=== PATIENT | female | born 1970 | race African-American/Black ===

== ENCOUNTER 2019-10-15 03:55 | Emergency (ER) | payer BC ==
[2019-10-15] MEDS ORDERED: Ondansetron 4 MG/2 ML SDV IVPUSH ONE (04:21)
[2019-10-15] MEDS ORDERED: Lactated Ringers 1,000 ML IV ONE (04:21)
[2019-10-15] MEDS ORDERED: Dicyclomine 10 MG Cap PO STA (04:22)
[2019-10-15] MEDS ORDERED: Alum Hydrox/Mag Hydrox/Simeth 30 ML, Lidocaine 2% 15 ML PO STA ×2 (04:27)
[2019-10-15] MEDS ORDERED: FLU Vacc QS2019-20(6MOS+)/PF 60 MCG/0.5 ML SYRINGE IM ONE (04:30)
--- NOTE | 2019-10-15 04:31 | EDM.PDOC ---
ED HPI GENERAL MEDICAL PROBLEM - General Chief Complaint: Abdominal Pain Stated Complaint: DIARRHEA COUGH SOB Time Seen by Provider: 10/15/19 04:02 Source of Information: Reports: Patient, Family () History Limitations: Reports: No Limitations - History of Present Illness INITIAL COMMENTS - FREE TEXT/NARRATIVE: Mrs. 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 She felt faint after cleaning it up, then developed epigastric abdominal cramps, one episode of emesis, and watery diarrhea. She states that she can't sleep and she can't eat. No recent fever or urinary symptoms. She states that she has been taking Pepto-Bismol, without any relief, but that her symptoms are improved if she takes a hot bath, therefore she has been taking 3 to 4 per day. No prior similar symptoms. The patient also reports hot flashes for more than 3 years. Her LMP was in August 2015. She has seen a Chemical Test Engineer regarding her menopause. Here in the ED, the patient's BP is found to be elevated at 155/84, but she is otherwise hemodynamically stable, afebrile, saturating 100% on room air. She appears to be quite anxious. The patient does not have a PCP. She did not receive an influenza vaccine this season, but agreed to receive one here today. Epigastric Pain Score (Numeric/FACES): 9 - Related Data Allergies Allergy/AdvReac Type Severity Reaction Status Date / Time amoxicillin [From Augmentin] Allergy Hives Verified 10/15/19 04:04 clavulanic acid Allergy Hives Verified 10/15/19 04:04 [From Augmentin] Home Meds: Home Meds . [No Known Home Meds] 08/15/18 [History] Past Medical History : 7 Para: 8 - Past Surgical History HEENT Surgical History: Reports: Cataract Surgery (left only) Female Surgical History: Reports: Section (x 3) Neurological Surgical History: Reports: Lumbar Spine (unclear - likely microdiscectomy, in 2015) Social & Family History - Family History Family Medical History: Unobtainable - Tobacco Use Smoking Status *Q: Current Every Day Smoker Years of Tobacco use: 35 Packs/Tins Daily: 0.5 Packs/Tins Daily Comment: Down from 2 ppd - Caffeine Use Caffeine Use: Reports: None - Alcohol Use Alcohol Use History: No - Recreational Drug Use Recreational Drug Use: Yes Drug Use in Last 12 Months: Yes Recreational Drug Type: Reports: Marijuana/Hashish (smokes daily) - Living Situation & Occupation Living situation: Reports: , with Spouse, with Family (4 kids) 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 ED EXAM, GI/ABD - Physical Exam Exam: See Below Exam Limited By: No Limitations General Appearance: Alert, WD/WN, Anxious Eyes: Bilateral: Normal Appearance, EOMI Ears: Normal External Exam, Hearing Grossly Normal Nose: Normal Inspection Throat/Mouth: Normal Inspection, Normal Lips, Normal Voice, No Airway Compromise Head: Atraumatic, Normocephalic Neck: Normal Inspection, Full Range of Motion Respiratory/Chest: No Respiratory Distress, Lungs Clear, Normal Breath Sounds, No Accessory Muscle Use Cardiovascular: Normal Peripheral Pulses, Regular Rate, Rhythm, No Edema, No Gallop, No JVD, No Murmur, No Rub GI/Abdominal Exam: Normal Bowel Sounds, Soft, Non-Tender (including the epigastrium), No Organomegaly, No Distention, No Abnormal Bruit, No Mass (Female) Exam: Deferred Rectal (Female) Exam: Deferred Back Exam: Normal Inspection, Full Range of Motion, NT Extremities: Normal Inspection, Normal Range of Motion, No Pedal Edema, Normal Capillary Refill Neurological: Alert, Oriented, Normal Cognition, No Motor/Sensory Deficits Psychiatric: Anxious Skin Exam: Warm, Dry, Intact, Normal Color, No Rash Course - Vital Signs Last Recorded V/S: Last Vital Signs Temp 36.2 C 10/15/19 04:01 Pulse 68 10/15/19 04:01 Resp 19 10/15/19 04:01 BP 155/84 H 10/15/19 04:01 Pulse Ox 100 10/15/19 04:01 - Orders/Labs/Meds Orders: Active Orders 24 hr Category Date Time Status Influenza Vaccine Charge [RC] .DISCHARGE Care 10/15/19 04:23 Active Labs: Laboratory Tests 10/15/19 10/15/19 Range/Units 04:27 04:27 WBC 8.33 (3.98-10.04) K/mm3 RBC 4.94 (3.98-5.22) M/mm3 Hgb 14.6 (11.2-15.7) gm/dl Hct 44.2 (34.1-44.9) % MCV 89.5 (79.4-94.8) fl MCH 29.6 (25.6-32.2) pg MCHC 33.0 (32.2-35.5) g/dl RDW Std Deviation 46.7 H (36.4-46.3) fL Plt Count 312 (182-369) K/mm3 MPV 9.6 (9.4-12.3) fl Neutrophils % (Manual) 62 H (40-60) % Band Neutrophils % 0 (0-10) % Lymphocytes % (Manual) 32 (20-40) % Atypical Lymphs % 0 % Monocytes % (Manual) 5 (2-10) % Eosinophils % (Manual) 1 (0.7-5.8) % Basophils % (Manual) 0 L (0.1-1.2) Platelet Estimate Adequate RBC Morph Comment Normal Sodium 141 (136-145) mEq/L Potassium 3.7 (3.5-5.1) mEq/L Chloride 109 H (98-107) mEq/L Carbon Dioxide 25 (21-32) mEq/L Anion Gap 10.7 (5-15) BUN 14 (7-18) mg/dL Creatinine 0.7 (0.55-1.02) mg/dL Est Cr Clr Drug Dosing 82.19 mL/min Estimated GFR (MDRD) > 60 (>60) mL/min BUN/Creatinine Ratio 20.0 H (14-18) Glucose 95 (74-106) mg/dL Calcium 8.6 (8.5-10.1) mg/dL Magnesium 1.8 (1.8-2.4) mg/dl Total Bilirubin 0.5 (0.2-1.0) mg/dL AST 11 L (15-37) U/L ALT 15 (14-59) U/L Alkaline Phosphatase 96 (46-116) U/L Total Protein 7.0 (6.4-8.2) g/dl Albumin 3.5 (3.4-5.0) g/dl Globulin 3.5 gm/dL Albumin/Globulin Ratio 1.0 (1-2) Lipase 78 (73-393) U/L Meds: Medications Discontinued Medications Generic Name Dose Route Start Last Admin Trade Name Johnnie PRN Reason Stop Dose Admin Al Hydroxide/Mg Hydroxide 30 0 ml 10/15/19 04:27 10/15/19 04:34 ml/ Lidocaine HCl 15 ml PO 10/15/19 04:28 45 ml ONETIME STA Administration Dicyclomine HCl 20 mg 10/15/19 04:22 10/15/19 04:30 Bentyl PO 10/15/19 04:23 20 mg ONETIME STA Administration Famotidine 40 mg 10/15/19 05:14 10/15/19 05:26 Pepcid PO 10/15/19 05:15 40 mg ONETIME STA Administration Lactated Ringer's 1,000 mls @ 999 mls/hr 10/15/19 04:21 10/15/19 04:29 Ringers, Lactated IV 10/15/19 05:21 999 mls/hr .BOLUS ONE Administration Influenza Virus Vaccine 1 each 10/15/19 04:23 Pharmacy To Dose - Influenza Vaccine IM 10/15/19 04:24 ONETIME ONE Influenza Virus Vaccine 60 mcg 10/15/19 04:30 10/15/19 04:39 Fluzone Quad [id number] Syringe IM 10/15/19 04:31 60 mcg .ONCE ONE Administration Ondansetron HCl 4 mg 10/15/19 04:21 10/15/19 04:29 Zofran IVPUSH 10/15/19 04:22 4 mg ONETIME ONE Administration - Re-Assessments/Exams Free Text/Narrative Re-Assessment/Exam: 10/15/19 04:23 I have ordered some blood work to check for significant fluid or electrolyte shifts. In the meantime, the patient will be given IV fluid, IV Zofran, oral Bentyl, and a GI cocktail to see if we can make her feel better. 10/15/19 05:05 The patient's CBC is unremarkable. Her CMP is remarkable for chloride slightly elevated at 109, and is otherwise unremarkable. Her magnesium level is within normal limits at 1.8. Her lipase level was within normal limits at 78. 10/15/19 05:11 Test results discussed with the patient and her . The patient states that she had significant relief of her symptoms following the GI cocktail. This indicates that her epigastric pain was due to GERD. I will start her on oral famotidine and recommend that she continue to take that on a daily basis. I explained to the patient that her nausea, vomiting, abdominal cramps, and watery diarrhea, all made better with hot baths, sounds strongly suspicious for cannabis hyperemesis syndrome. I suggested that if her symptoms persist, despite oral famotidine, that she consider discontinuing marijuana altogether. With respect to the patient's recurrent hot flashes that have been occurring for more than 3 years, they are almost certainly related to untreated menopause. I suggested that the patient follow-up with a Chemical Test Engineer to discuss treatment options. The patient will be given an influenza vaccine prior to discharge. Departure - Departure Time of Disposition: 05:16 Disposition: Home, Self-Care 01 Condition: Good Clinical Impression: GERD (gastroesophageal reflux disease), Hot flashes due to menopause - Discharge Information *PRESCRIPTION DRUG MONITORING PROGRAM REVIEWED*: Not Applicable *COPY OF PRESCRIPTION DRUG MONITORING REPORT IN PATIENT ROXANE: Not Applicable Instructions: Menopause, Gastroesophageal Reflux Disease, Adult, [id number] Referrals: Jena Coronel NP [Nurse Practitioner] - Forms: ED Department Discharge, ED Return to Work/School Form Additional Instructions: You were seen in the emergency room after developing upper abdominal cramps, nausea, vomiting, and watery diarrhea. Work-up in the ER included blood work, all of which returned unremarkable. Symptoms significantly improved after he drank a GI cocktail, along with other medications that you were given. This strongly suggest that your upper abdominal pain was due to GERD = acid reflux. You have been started on the antacid medicine famotidine (Pepcid). Famotidine is available [id number], and generic is just as good as the brand name. We recommend that you take 1 tablet of famotidine once a day. If your symptoms persist despite taking famotidine, it is possible that you have a condition known as cannabis hyperemesis syndrome, where you develop abdominal pain and vomiting sometimes after you smoking even small amounts of marijuana. If that is the case, the only treatment is to stop smoking marijuana altogether. As discussed, your hot flashes are almost certainly due to menopause. We recommend that you follow-up with Kadi Homer, GUEST SERVICE AGENT, to discuss treatment options for your hot flashes. If any other problems, please do not hesitate to return to the ER. *You received an influenza vaccine during your ER visit.* Sepsis Event Note - Evaluation Sepsis Screening Result: No Definite Risk - Focused Exam Vital Signs: Vital Signs Temp Pulse Resp BP Pulse Ox 10/15/19 04:01 36.2 C 68 19 155/84 H 100 Date Exam was Performed: 10/15/19 Time Exam was Performed: 05:38 - My Orders Last 24 Hours: My Active Orders 10/15/19 04:23 Influenza Vaccine Charge [RC] .DISCHARGE - Assessment/Plan Last 24 Hours: My Active Orders 10/15/19 04:23 Influenza Vaccine Charge [RC] .DISCHARGE
[2019-10-15] MEDS ORDERED: Famotidine 20 MG Tab PO STA (05:14)
== END 2019-10-15 05:32 | disposition home or self-care (01) ==
LOC: JD.ED 03:55
DX: K21.9 Gastro-esophageal reflux disease without esophagitis (principal); N95.1 Menopausal and female climacteric states; F17.210 Nicotine dependence, cigarettes, uncomplicated; Z23 Encounter for immunization; Z88.1 Allergy status to other antibiotic agents
CPT/HCPCS: 36415; 80053; 83690; 83735; 85007; 85027; 90471; 90686; 96361; 96374; 99283; A9270; J2405; J7120; 99284; G0008

== ENCOUNTER 2020-03-04 13:53 | Emergency (ER) | payer SELFPAY ==
--- NOTE | 2020-03-04 14:54 | EDM.PDOC ---
ED HPI GENERAL MEDICAL PROBLEM - General Chief Complaint: Respiratory Problem Stated Complaint: COVID SX SENT BY [facility] Time Seen by Provider: 03/04/20 14:14 Source of Information: Reports: Patient History Limitations: Reports: No Limitations - History of Present Illness INITIAL COMMENTS - FREE TEXT/NARRATIVE: Patient is a 49-year-old female who presents to the emergency department with acute onset of cough yesterday. States symptoms began around 1130 this morning. Prior to this she was feeling well. She states that she coughs so hard that it makes her vomit. Otherwise she does not feel nauseous and has not had vomiting in the absence of coughing. She denies any chronic underlying health conditions. She was seen at [facility] prior to coming here and states that she was sent here for her "breathing problems ". Oxygen saturation is 100% on room air. She is in no respiratory distress. Vital signs are otherwise stable. She states that one of her coworkers tested positive for COVID and she is concerned that she may have this. 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: Musculoskeletal History: Reports: Back Pain, Chronic - Past Surgical History HEENT Surgical History: Reports: Cataract Surgery Female Surgical History: Reports: Section Neurological Surgical History: Reports: Lumbar Spine Musculoskeletal Surgical History: Reports: Other (See Below) Other Musculoskeletal Surgeries/Procedures:: back surgery 2015 for ruptured disc Social & Family History - Family History Family Medical History: Unobtainable - Tobacco Use Smoking Status *Q: Current Every Day Smoker Years of Tobacco use: 20 Packs/Tins Daily: 0.2 - Caffeine Use Caffeine Use: Reports: None - Recreational Drug Use Recreational Drug Use: No - Living Situation & Occupation Living situation: Reports: , with Spouse, with Family (4 kids) 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 Denies: Fever, Chills, Weakness HEENT: Reports: No Symptoms Respiratory: Reports: Cough. Denies: Shortness of Breath, Wheezing Cardiovascular: Reports: No Symptoms Endocrine: Reports: No Symptoms GI/Abdominal: Reports: Vomiting. Denies: Abdominal Pain, Diarrhea, Nausea : Reports: No Symptoms Musculoskeletal: Reports: No Symptoms Skin: Reports: No Symptoms Neurological: Reports: No Symptoms Psychiatric: Reports: No Symptoms Hematologic/Lymphatic: Reports: No Symptoms Immunologic: Reports: No Symptoms ED EXAM, GENERAL - Physical Exam Exam: See Below Exam Limited By: No Limitations General Appearance: Alert, WD/WN, No Apparent Distress Respiratory/Chest: No Respiratory Distress, Lungs Clear, Normal Breath Sounds, No Accessory Muscle Use, Chest Non-Tender Cardiovascular: Normal Peripheral Pulses, Regular Rate, Rhythm, No Edema, No Gallop, No JVD, No Murmur, No Rub Neurological: Alert, Oriented, CN II-XII Intact, Normal Cognition, Normal Gait, Normal Reflexes, No Motor/Sensory Deficits Psychiatric: Normal Affect, Normal Mood Skin Exam: Warm, Dry, Intact, Normal Color, No Rash Course - Vital Signs Last Recorded V/S: Last Vital Signs Temp 98 F 03/04/20 14:05 Pulse 71 03/04/20 14:05 Resp 16 03/04/20 14:05 BP 156/92 H 03/04/20 14:05 Pulse Ox 100 03/04/20 14:05 - Orders/Labs/Meds Labs: Laboratory Tests 03/04/20 Range/Units 15:10 COVID-19 PCR Not detected (NOT DETECT) - Re-Assessments/Exams Free Text/Narrative Re-Assessment/Exam: 03/04/20 14:50 Patient's lung sounds are clear bilateral. She is in no respiratory distress. Oxygen saturation has been 100% on room air. Vital signs are stable. I will send a prescription for Phenergan with codeine cough syrup and will complete a coronavirus screen in the ER. Recommend she continue to self isolate and gave education on how to do so. Discharge instructions as documented. Departure - Departure Time of Disposition: 14:51 Disposition: Home, Self-Care 01 Condition: Good Clinical Impression: Cough - Discharge Information *PRESCRIPTION DRUG MONITORING PROGRAM REVIEWED*: Yes *COPY OF PRESCRIPTION DRUG MONITORING REPORT IN PATIENT ROXANE: No Prescriptions: Codeine/Promethazine [Phenergan with Codeine] 5 ml PO Q4HR PRN #100 ml PRN Reason: Cough Instructions: Cough, Adult, [id number] Referrals: PCP,None [Primary Care Provider] - Forms: ED Department Discharge Additional Instructions: You were seen in the emergency department today for acute onset of cough while at work. X-ray was taken and found to be normal. There are no signs of either viral or bacterial pneumonia. Your lung sounds are clear. You have been provided a prescription for Phenergan with codeine cough syrup. Take this medication as prescribed. Please be aware that you should not work or drive for 12 hours after taking this as it can be sedating. Clinic pharmacy is unfortunately closed, therefore this is been sent electronically to [facility]. A coronavirus test has been completed. You should be notified of those results within 24 to 48 hours. Recommend that you continue to self isolate. Ensure you are taking in an adequate amount of fluid. If you should experience any new or worsening symptoms of concern, please do not hesitate to return to the emergency department for reevaluation. Sepsis Event Note (ED) - Evaluation Sepsis Screening Result: No Definite Risk
--- NOTE | 2020-03-05 11:49 | CR ---
Chest: Portable view of the chest was obtained. Comparison: No previous chest imaging. Heart size and mediastinum are normal. Possible minimal scarring or atelectasis within the left midlung. Lungs otherwise show no acute parenchymal change. Bony structures are unremarkable. Impression: 1. Slight atelectasis or scarring within the left midlung. 2. Nothing acute is otherwise seen on portable chest x-ray. Diagnostic code #2 This report was dictated in MDT
== END 2020-03-04 15:20 | disposition home or self-care (01) ==
LOC: JD.ED 13:53
DX: R05 Cough (principal); Z20.828 Contact with and (suspected) exposure to other viral communicable diseases; Z88.1 Allergy status to other antibiotic agents; F17.210 Nicotine dependence, cigarettes, uncomplicated
CPT/HCPCS: 71045; 71045-26; 99282; 99283-25; U0002